=== PATIENT | female | born 1995 | race Caucasian/White ===

== ENCOUNTER 2021-05-31 09:55 | Day surgery (SDC) | payer OTHER ==
[2021-05-31 10:24] VITALS: BMI 44.3
[2021-05-31] MEDS ORDERED: hydrALAZINE 20 MG/ML VIAL SLOW IVP PRN (11:14)
[2021-05-31 13:07] LABS: Fetal Membranes Rupture No Membranes Rupture (No Rupture)
== END 2021-05-31 13:34 | disposition home or self-care (01) ==
LOC: CSHLD/OP 09:55
PROVIDERS: ATTEND Obstetrics & Gynecology
DX: O47.03 False labor before 37 completed weeks of gestation, third trimester (principal); O99.891 Other specified diseases and conditions complicating pregnancy; O99.353 Diseases of the nervous system complicating pregnancy, third trimester; O99.343 Other mental disorders complicating pregnancy, third trimester; O99.513 Diseases of the respiratory system complicating pregnancy, third trimester; O99.333 Smoking (tobacco) complicating pregnancy, third trimester; N89.8 Other specified noninflammatory disorders of vagina; G40.909 Epilepsy, unspecified, not intractable, without status epilepticus; F31.9 Bipolar disorder, unspecified; F90.9 Attention-deficit hyperactivity disorder, unspecified type; J45.909 Unspecified asthma, uncomplicated; F17.200 Nicotine dependence, unspecified, uncomplicated; Z3A.33 33 weeks gestation of pregnancy; Z87.59 Personal history of other complications of pregnancy, childbirth and the puerperium; Z79.899 Other long term (current) drug therapy; Z88.8 Allergy status to other drugs, medicaments and biological substances; Z91.030 Bee allergy status
CPT/HCPCS: 84112; 87480; 87510; 87660; 99284

== ENCOUNTER 2021-07-07 20:55 | Inpatient (IN) | payer OTHER ==
[2021-07-07 21:44] VITALS: BMI 46.3
[2021-07-07] MEDS ORDERED: hydrALAZINE 20 MG/ML VIAL SLOW IVP PRN (22:17)
[2021-07-07] MEDS ORDERED: Acetaminophen 325 MG TAB PO SCH (22:30)
[2021-07-07] MEDS ORDERED: Sodium Chloride 0.9% 1,000 ML IV SCH (23:00)
[2021-07-08 00:35] LABS: SARS-CoV-2 NAA Rapid Test DETECTED (NotDetected)
[2021-07-08] MEDS ORDERED: Ibuprofen 800 MG TAB PO PRN (01:27)
[2021-07-08] MEDS ORDERED: Lidocaine 1% (PF) 30 ML VIAL SC PRN (01:27)
[2021-07-08] MEDS ORDERED: Misoprostol 200 MCG TAB PR PRN (01:27)
[2021-07-08] MEDS ORDERED: Carboprost 250 MCG/ML AMP IM PRN (01:27)
[2021-07-08] MEDS ORDERED: Butorphanol Tartrate 1 MG/ML VIAL SLOW IVP PRN (01:27)
[2021-07-08] MEDS ORDERED: Promethazine HCl 25 MG/ML VIAL IM PRN ×3 (01:27→09:21)
[2021-07-08] MEDS ORDERED: Acetaminophen 500 MG TAB PO PRN (01:27)
[2021-07-08] MEDS ORDERED: Ondansetron PF 4 MG/2 ML Vial IVP PRN ×3 (01:27→09:21)
[2021-07-08] MEDS ORDERED: Methylergonovine 0.2 MG/ML VIAL IM PRN (01:27)
[2021-07-08] MEDS ORDERED: NS w/ Oxytocin 30 units 500 ML IV SCH (01:30)
[2021-07-08] MEDS ORDERED: Penicillin G Potassium 5 MILL.UNITS in Sodium Chloride 0.9% 100 ML IVPB SCH (02:00)
[2021-07-08 02:26] LABS: Hemoglobin 10.6 g/dL (12.0-15.5); MDiff Complete? YES; Manual Diff?? YES; Mean Corpuscular HGB CONC 31.8 g/dL (32.0-36.0); Mean Corpuscular Hemoglobin 26.4 pg (27.0-33.0); Mean Corpuscular Volume 82.8 fl (81.6-98.3); Mean Platelet Volume 11.7 fl (7.4-10.4); Platelet Count 248 10x3/uL (150-450); RBC Distribution Width 14.3 % (11.5-14.5); Red Blood Cell (RBC) Count 4.02 10x6/uL (3.90-5.03); White Blood Cell (WBC) Count 15.3 10x3/uL (3.5-10.5)
[2021-07-08] MEDS ORDERED: Famotidine/PF 20 mg/2ml Vial SLOW IVP PRN (02:40)
[2021-07-08] MEDS ORDERED: Bicitra 30 ML UDCUP PO PRN (02:40)
[2021-07-08 02:45] LABS: ALT (SGPT) 6 U/L (8-55); AST (SGOT) 11 U/L (5-34); Alkaline Phosphatase 224 U/L (40-110); Anion Gap 11 mmol/L (10-20); BUN (Urea Nitrogen) 9 mg/dL (7.0-18.7); Bilirubin, Total 0.1 mg/dL (0.2-1.2); Calc. Creatinine Clearance 219 mL/min (70-130); Calcium 8.4 mg/dL (7.8-10.44); Carbon Dioxide 21 mmol/L (22-29); Chloride 105 mmol/L (98-107); Globulin 3.1 g/dL (2.4-3.5); Glucose 76 mg/dL (70-105); Potassium 3.9 mmol/L (3.5-5.1); Protein, Total 6.1 g/dL (6.0-8.3); Sodium 133 mmol/L (136-145)
[2021-07-08] MEDS ORDERED: CEFAZOLIN 2 GM in Premix Bag 1 BAG IVPB SCH (02:45)
[2021-07-08] MEDS ORDERED: Bicitra 30 ML UDCUP ONE (02:57)
[2021-07-08] MEDS ORDERED: Morphine PF 10 MG/10 ML VIAL ONE (03:00)
[2021-07-08] MEDS ORDERED: Ondansetron PF 4 MG/2 ML Vial ONE ×2 (03:00→05:59)
[2021-07-08] MEDS ORDERED: Oxytocin 10 UNITS/ML VIAL ONE (03:00)
[2021-07-08] MEDS ORDERED: Dexamethasone 4 mg/ml Vial ONE (03:00)
[2021-07-08] MEDS ORDERED: PHENYLEPHRINE-NS 100 MCG/ML 10 ML SYRINGE ONE (03:00)
[2021-07-08 03:05] LABS: Hep B Surf Ag Non-Reactive S/CO (NonReactive); Syphilis Antibody Nonreactive (Nonreactive); Syphilis Antibody Index 0.07 S/CO (<1.00 Non-Reactive)
[2021-07-08] MEDS ORDERED: Simethicone Chewable 80 MG TAB PO PRN (03:54)
[2021-07-08] MEDS ORDERED: hydrALAZINE 20 MG/ML VIAL SLOW IVP PRN (03:54)
[2021-07-08] MEDS ORDERED: Lanolin Ointment 7 GM TUBE TOP PRN (03:54)
[2021-07-08] MEDS ORDERED: diphenhydrAMINE 25 MG CAP PO PRN (03:54)
[2021-07-08] MEDS ORDERED: Boostrix 0.5 ML (Tdap) VIAL IM ONE (03:54)
[2021-07-08] MEDS ORDERED: HYDROcodone/Acetaminophen 5/325 mg Tablet PO PRN ×2 (03:54)
[2021-07-08 03:55] LABS: HBSAg Index 0.15 S/CO (0-0.99)
[2021-07-08 03:59] LABS: pH (Cord, venous) 7.347 (7.250-7.350)
[2021-07-08] MEDS ORDERED: Ibuprofen 800 MG TAB PO SCH (06:00)
[2021-07-08] MEDS ORDERED: Penicillin G 2.5 MILL.units 2.5 MILL.UNITS in Premix Bag 1 BAG IVPB SCH (06:00)
[2021-07-08 07:07] LABS: Band 5 % (5-11); Eosinophils 1 % (0-10); Lymphocytes 24 % (21-51); Monocytes 2 % (0-10); Neutrophil 64 % (42-75); Reactive Lymphocytes 4 % (0-10)
[2021-07-08 07:09] LABS: Anisocytosis SLIGHT = 6-15 cells (100X) (0-5/hpf); Large Platelets MODERATE; Microcytosis SLIGHT = 6-15 cells (100X) (0-5/hpf); Platelet Morphology Comment Appears Adequate
[2021-07-08] MEDS ORDERED: Naloxone HCl 0.4 mg/ml Vial IVP PRN ×2 (09:21)
[2021-07-08] MEDS ORDERED: Naloxone HCl 0.4 mg/ml Vial IV PRN (09:21)
[2021-07-08] MEDS ORDERED: Promethazine HCl 25 MG SUPP PR PRN (09:21)
[2021-07-08] MEDS ORDERED: Hydrocerin (Eucerin) Cream 120 gm Jar TOP PRN (09:21)
[2021-07-08] MEDS ORDERED: diphenhydrAMINE 50 MG/ML VIAL IVP PRN (09:21)
[2021-07-08] MEDS ORDERED: Ketorolac Tromethamine 30 MG/ML VIAL IVP PRN (09:21)
[2021-07-08] MEDS ORDERED: Communication Order-Pharmacy FS SCH (09:30)
[2021-07-08] MEDS: Prenatal Vitamin 1 TAB PO SCH (10:31)
[2021-07-08] MEDS: Ferrous Sulfate 325 MG TAB PO SCH (10:31)
[2021-07-08] MEDS ORDERED: levETIRAcetam 500 MG TAB PO SCH (11:00)
[2021-07-08 12:35] LABS: Amphetamine Not Detected (NotDetected); Barbiturates Screen Not Detected (NotDetected); Benzodiazepine Screen Not Detected (NotDetected); Cocaine Metabolite Screen Not Detected (NotDetected); Methadone Not Detected (NotDetected); Methamphetamine Not Detected (NotDetected); Opiate Screen Detected (NotDetected); Oxycodone Screen Not Detected (NotDetected); Phencyclidine (PCP) Not Detected (NotDetected); THC/Cannabinoid Screen Not Detected (NotDetected); Tricyclic Screen Not Detected (NotDetected)
[2021-07-08 12:52] LABS: Creatinine, Urine 37.57 mg/dL (47-110); Protein, Urine Random Quant Less than 10 mg/dL (1-14)
[2021-07-08] MEDS: levETIRAcetam 500 MG TAB PO SCH (21:00)
[2021-07-09] MEDS ORDERED: Calcium Carbonate 500 MG ChewTAB PO PRN (02:11)
[2021-07-09 06:37] LABS: Hemoglobin 9.8 g/dL (12.0-15.5); Mean Corpuscular HGB CONC 32.2 g/dL (32.0-36.0); Mean Corpuscular Hemoglobin 26.6 pg (27.0-33.0); Mean Corpuscular Volume 82.6 fl (81.6-98.3); Mean Platelet Volume 12.5 fl (7.4-10.4); Platelet Count 217 10x3/uL (150-450); RBC Distribution Width 14.3 % (11.5-14.5); Red Blood Cell (RBC) Count 3.68 10x6/uL (3.90-5.03); White Blood Cell (WBC) Count 15.5 10x3/uL (3.5-10.5)
[2021-07-09] MEDS: levETIRAcetam 500 MG TAB PO SCH ×2 (08:21→21:25)
[2021-07-09] MEDS: Ferrous Sulfate 325 MG TAB PO SCH ×2 (08:22→19:14)
[2021-07-09] MEDS: Prenatal Vitamin 1 TAB PO SCH (08:22)
[2021-07-09] MEDS ORDERED: Folic Acid 1 MG TAB PO SCH (09:00)
[2021-07-09] MEDS: Ibuprofen 800 MG TAB PO SCH ×2 (16:30→21:41)
[2021-07-09] MEDS ORDERED: HYDROcodone/Acetaminophen 5/325 mg Tablet PO PRN (21:00)
[2021-07-09] MEDS: HYDROcodone/Acetaminophen 5/325 mg Tablet PO PRN (21:25)
[2021-07-10] MEDS: HYDROcodone/Acetaminophen 5/325 mg Tablet PO PRN (04:17)
[2021-07-10] MEDS: Ibuprofen 800 MG TAB PO SCH (04:17)
[2021-07-10] MEDS: levETIRAcetam 500 MG TAB PO SCH (08:11)
[2021-07-10] MEDS: Ferrous Sulfate 325 MG TAB PO SCH (08:11)
[2021-07-10] MEDS: Prenatal Vitamin 1 TAB PO SCH (08:11)
[2021-07-10 08:31] VITALS: BP 143/85; TEMP 98.4
== END 2021-07-10 12:20 | disposition home or self-care (01) | DRG 786 ==
LOC: CSHLD/OP 20:55 → UNDOADMIN 07-08 02:43 → CSHLD 07-08 02:43 → CSHPP 07-08 07:30
PROVIDERS: ADMIT Student in an Organized Health Care Education/Training Program; ATTEND Student in an Organized Health Care Education/Training Program
PROC: 10D00Z1 Extraction of Products of Conception, Low, Open Approach (ICD-10-PCS; principal; 2021-07-08)
PROC: 8E0ZXY6 Isolation (ICD-10-PCS; 2021-07-08)
DX: O98.52 Other viral diseases complicating childbirth (principal); U07.1 COVID-19; O99.354 Diseases of the nervous system complicating childbirth; O99.334 Smoking (tobacco) complicating childbirth; O99.314 Alcohol use complicating childbirth; O99.344 Other mental disorders complicating childbirth; O99.214 Obesity complicating childbirth; F17.210 Nicotine dependence, cigarettes, uncomplicated; F10.10 Alcohol abuse, uncomplicated; F31.9 Bipolar disorder, unspecified; F41.9 Anxiety disorder, unspecified; F90.9 Attention-deficit hyperactivity disorder, unspecified type; F43.10 Post-traumatic stress disorder, unspecified; O99.52 Diseases of the respiratory system complicating childbirth; J45.909 Unspecified asthma, uncomplicated; F12.10 Cannabis abuse, uncomplicated; O13.4 Gestational [pregnancy-induced] hypertension without significant proteinuria, complicating childbirth; O99.824 Streptococcus B carrier state complicating childbirth; O76 Abnormality in fetal heart rate and rhythm complicating labor and delivery; Z83.3 Family history of diabetes mellitus; Z82.0 Family history of epilepsy and other diseases of the nervous system; Z79.899 Other long term (current) drug therapy; Z88.5 Allergy status to narcotic agent; Z91.030 Bee allergy status
CPT/HCPCS: 36415; 51702; 76815; 76819; 80053; 80177; 80306; 82570; 82805; 84156; 85027; 86780; 86850; 86900; 86901; 87340; 87480; 87510; 87660; 88307; 99285; J1100; J1200; J1885; J2274; J2405; J2540; J2590; U0002